=== PATIENT | female | born 2000 | race Two or more races ===

== ENCOUNTER 2024-10-05 13:28 | Outpatient (CLI) | payer BC, SELFPAY | END 2024-10-05 13:29 | disposition home or self-care (01) | PROVIDERS: PCP Physician Assistant Medical; Visit Provider Physician Assistant Medical | DX: Z13.6 Encounter for screening for cardiovascular disorders (principal); Z13.1 Encounter for screening for diabetes mellitus; Z13.0 Encounter for screening for diseases of the blood and blood-forming organs and certain disorders involving the immune mechanism; Z11.3 Encounter for screening for infections with a predominantly sexual mode of transmission; Z11.59 Encounter for screening for other viral diseases | CPT/HCPCS: 80061; 84443; 86703; 86803; 87491; 87591; 87624; 87625; 88141; 88142 ==